=== PATIENT | female | born 1995 | race Caucasian/White ===

== ENCOUNTER → 2020-10-13 | Outpatient (CLI) | payer SELFPAY | LOC: M LABSMTC 13:28 | PROVIDERS: ATTEND Pediatrics | DX: Z20.822 Contact with and (suspected) exposure to COVID-19 (principal) ==

== ENCOUNTER 2021-10-07 08:38 | Emergency (ER) | payer OTHER ==
[~2021-10-07] VITALS: Ht 167.6 cm; Wt 72.7 kg
[2021-10-07] MEDS ORDERED: AMOX875T2 PO (10:43)
[2021-10-07] MEDS ORDERED: ACETAMINOPHEN 325 MG TAB PO ONE (10:45)
[2021-10-07] MEDS ORDERED: AUGMENTIN 875 MG TAB PO ONE (10:45)
[2021-10-07 10:50] VITALS: BP 128/81
== END 2021-10-07 10:51 | disposition home or self-care (01) ==
LOC: M ED 08:38
DX: J02.0 Streptococcal pharyngitis (principal)